=== PATIENT | male | born 1965 | race Caucasian/White ===

== ENCOUNTER 2020-10-22 20:04 | Emergency (ER) | payer OTHER ==
[~2020-10-22] VITALS: Ht 177.8 cm; Wt 92.5 kg
[~2020-10-22 20:04] MED LIST: BP PILL PO; Bactrim Ds Tab1 EACH PO; CEPH500 PO; INSULANPEN SC; LISI20 PO; Lantus100 UNIT/1 SC; [UNRECOGNIZED DRUG - OTHER] SC
[2020-10-22] MEDS ORDERED: LIDO700A20 TOP (23:26)
[2020-10-22] MEDS ORDERED: CYCL10 PO (23:26)
== END 2020-10-23 00:14 | disposition home or self-care (01) ==
LOC: ER 20:04
DX: M54.16 Radiculopathy, lumbar region (principal); E11.9 Type 2 diabetes mellitus without complications; I10 Essential (primary) hypertension; Z79.4 Long term (current) use of insulin; Z79.899 Other long term (current) drug therapy
CPT/HCPCS: 96372; 99283-25; A9270; J1885